=== PATIENT | male | born 2000 | race Caucasian/White ===

== ENCOUNTER 2021-01-19 15:01 | Emergency (ER) | payer OTHER, SELFPAY ==
--- NOTE | ~2021-01-19 | XR_ITS ---
EXAMINATION: XR FINGER, RIGHT CLINICAL INFORMATION: Laceration to fourth digit COMPARISON: None TECHNIQUE: Three views of the right ring finger. FINDINGS: There is a small tuft fracture of the distal phalanx of the right hand that is minimally displaced by approximately 1-2 mm. There is overlying soft tissue laceration and soft tissue swelling. XR/XR finger RT min 2V IMPRESSION: Fourth digit tuft fracture.
[2021-01-19 15:08] VITALS: BP 85/39; PULSE 68; RESP 18; TEMP 36.3; O2SAT 97; BMI 25.0
[2021-01-19] MEDS: Acetaminophen 325 MG TABLET 975 MG PO (15:50)
[2021-01-19] MEDS: Lidocaine HCl 2 % MPF 5 ML VIAL INFILTRATI ×2 (15:51→15:58)
[2021-01-19] MEDS: cephALEXin 500 MG CAPSULE PO (15:51)
[2021-01-19] MEDS: Diphth,Pertus(ACell),Tet Adult 0.5 ML SYRINGE IM (15:58)
--- NOTE | 2021-01-19 16:00 | PC.NURSE ---
Pt alert and oriented x3, vss. Pt reports while using an electric top edge beveler it slipped and landed on his R 4th finger resulting in a deep laceration to the tip. Moderate amount of sero-sanguineous drainage, +CMS. Pt reports pain 2/10. xray done, finger cleaned, sutures applied. Pt in no apparent distress.
--- NOTE | 2021-01-19 16:06 | ED_ITS ---
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 He had immediate pain and significant bleeding. He drove himself to the ER. On arrival he was dizzy and nauseated. His BP was low and he was diaphoretic. This all resolved when would was dressed and covered. He was noted to be able to fully extend and flex his finger. He denies numbness, tingling, weakness. Bleeding is controlled on arrival. Onset (ago): minute(s) (30) Extremity Location: right: hand (4th finger) Place: home Patient tetanus UTD: No Context: accidental Associated symptoms: pain Treatments prior to arrival: bandage Related Data Previous Rx's Medication Instructions Recorded cephalexin 500 mg PO Q6H 7 Days #28 cap 01/19/21 hydrocodone-acetaminophen 1 tab PO Q6H PRN #5 tab 01/19/21 ibuprofen 600 mg PO Q8H PRN #20 tab 01/19/21 Allergies Allergy/AdvReac Type Severity Reaction Status Date / Time No Known Allergies Allergy Verified 01/19/21 15:08 Review of Systems Review of Systems: Constitutional: No Fever, No Chills Gastrointestinal: + Nausea, No Vomiting, No Diarrhea, No abdominal Pain Musculoskeletal: + joint pain, No Myalgias Skin: + Skin Lesions, No rash Neuro: No Weakness, No Numbness, + Dizziness, No Headache Psych: + Anxiety/Panic Heme/Lymph: No Bruising PMFSH Past Medical History Attestation statement: The following information was validated with the patient. Medical History No pertinent past medical history Social History Social History Patient Tobacco Use Status: Current everyday Tobacco user Use of substances other than those prescribed or required for medical reasons: No Advance Directives: No Advance Directives Information Provided: Yes Physical Exam Vital Signs: Vital Signs: Last Vital Signs Temp 97.4 F 01/19/21 15:08 Pulse 90 01/19/21 16:47 Resp 20 01/19/21 16:47 BP 135/72 01/19/21 16:47 Pulse Ox 98 01/19/21 16:47 Body Mass Index 25.0 Appearance: Alert. Oriented X3. No acute distress. HEENT: normal inspection CVS: Normal heart rate and rhythm. Pulses normal. Respiratory: No respiratory distress. Skin: Skin warm and dry. Normal skin color. Normal skin turgor. No rashes. Extremities: right hand with deep laceration at the distal aspect of the 4th digit involving the distal nail and fingerfip deep structures intact with normal flexion and extension of the DIP and PIP joints. NV intact distally. Neuro: Oriented X 3. No motor deficit. No sensory deficit. Course Course Course Narrative: 20 y/o male presenting with deep laceration to distal 4th digit on right hand. Tendon function appers to be intact. Concern about depth to the bone. XR pending. Tdap and abx ordered. Initially hypotensive and dizzy on arrival due to seeing the wound and blood, hx syncope in similar sitution in the past. BP improved to 106 systolic without intervention and patient now feels well. Hold off on IVF for now. Will monitor closely. Reevaluation(s) Reevaluation #1: XR showing There is a small tuft fracture of the distal phalanx of the right hand that is minimally displaced by approximately 1-2 mm. There is overlying soft tissue laceration and soft tissue swelling. Carole CHEEMA for recs - wash out and suture, will f/u in the office on Thursday. Reevaluation #2: Patient tolerated digital block well. Wound extensively irrigated and sutured closed. Wound care reviewed as well as finger splint. He will f/u with Ortho on Thursday. Stable for discharge home. Procedures Laceration Laceration 1: Site: hand Side (If applicable): right Description: linear Depth: [id number] Local Anesthetic: lidocaine 2% and other anesthetic (digit block) Amount of anesthesia used (mL): 6 Pre-repair: wound explored, irrigated extensively and deep structures int act Skin layer closed with: nylon Size (cm): 4-0 Number of sutures: 4 Technique: simple, interrupted Subcutaneous layer closed with: other (nail bed absorbable sutures placed ) Size: 5-0 Number of sutures: 2 Nerve Block Nerve Block 1: Time out performed: Yes Local Anesthetic: lidocaine 2% Amount of anesthesia used (mL): 6 Side: right Nerve Blocks: digital Procedure Successful: Yes Patient Tolerated Procedure: well Complications: none Discharge Plan Discharge Clinical Impression: Open fracture of finger, distal phalanx Qualifiers: Encounter type: initial encounter Finger: ring finger Fracture alignment: nondisplaced Laterality: right Qualified Code(s): S62.664B - Nondisplaced fracture of distal phalanx of right ring finger, initial encounter for open fracture Patient Disposition: Home, Self-Care Instructions: Finger Fracture (ED), Finger Laceration (ED) Additional Instructions: X-ray showed a broken bone at the tip of your finger. Take the prescribed antibiotics as directed to help prevent infeciton. Sutures were placed to close the wound. You will need your stitches out in 7-10 days. Do not get wet for 24 hours, after that you can briefly wash with soap and water then pat dry. Use bacitracin 2x per day. Keep wound clean and covered. Do not submerge in water, no swimming. Follow up with Orthopedics on Thursday. They are aware of your case. If you develop signs of infection including increased pain, swelling, redness or drainage of pus come back to the ER for further evaluation. Prescriptions: New cephalexin 500 mg capsule 500 mg PO Q6H 7 Days Qty: 28 RF: 0 ibuprofen 600 mg tablet 600 mg PO Q8H PRN (Reason: pain) Qty: 20 RF: 0 hydrocodone-acetaminophen 5-325 mg tablet 1 tab PO Q6H PRN (Reason: pain) Qty: 5 RF: 0 Referrals: Lacie Garcia PA-C [[facility]] - 3 days (open left 4th finger fx) Stand Alone Forms: Work/School Release
[2021-01-19 16:47] VITALS: BP 135/72; PULSE 90; RESP 20; O2SAT 98
== END 2021-01-19 17:42 | disposition home or self-care (01) ==
PROVIDERS: Emergency Provider Emergency Medicine Emergency Medical Services
DX: S62.664B Nondisplaced fracture of distal phalanx of right ring finger, initial encounter for open fracture (principal); W29.3XXA Contact with powered garden and outdoor hand tools and machinery, initial encounter; Y93.H2 Activity, gardening and landscaping; Y92.017 Garden or yard in single-family (private) house as the place of occurrence of the external cause; Y99.9 Unspecified external cause status
CPT/HCPCS: 12042; 29130; 64450; 73140; 90471; 90715; 99284; 99285

== ENCOUNTER → 2021-01-22 09:43 | Outpatient (BNVA) | payer OTHER, SELFPAY | PROVIDERS: Visit Provider Physician Assistant ==

== ENCOUNTER → 2021-01-25 09:23 | Outpatient (BNVA) | payer OTHER, SELFPAY | PROVIDERS: Visit Provider Physician Assistant ==

== ENCOUNTER → 2021-02-04 12:57 | Outpatient (BNVA) | payer OTHER, SELFPAY | PROVIDERS: Visit Provider Physician Assistant ==